=== PATIENT | male | born 1980 | race Caucasian/White ===

== ENCOUNTER 2016-04-30 19:53 | Emergency (ER) | payer BC ==
[~2016-04-30] VITALS: Ht 185.4 cm; Wt 98.9 kg
[2016-04-30 19:55] VITALS: BP 131/82; PULSE 72; RESP 18; TEMP 98; O2SAT 99
--- NOTE | 2016-04-30 19:55 | NUR ---
Patient to ER bed [facility] for evaluation. Side rails up. Report given to PENNIE LEBRON.
--- NOTE | 2016-04-30 20:00 | NUR ---
Patient AAO x4, sitting in bed, c/o LAC to left great toe. Patient states he was brewing beer at home and dropped a glass jar on his left foot and sustained a 1 inch LAC. Denies N/V/D, Denies shortness of breath, no acute distress noted. Will continue to monitor.
--- NOTE | 2016-04-30 20:53 | NUR ---
Patient back from x-ray and moved to bed 3
[2016-04-30] MEDS ORDERED: LIDOCAINE 1%, 20 ML MDV 20 ML ONE (21:54)
--- NOTE | 2016-04-30 21:55 | NUR ---
Dr. Vargas at bedside doing laceration repair.
[2016-04-30 22:31] VITALS: BP 131/82; PULSE 72; RESP 18; TEMP 98; O2SAT 99
--- NOTE | 2016-04-30 22:31 | NUR ---
Patient given written and verbal discharge instructions and verbalizes understanding. ER MD Vargas discussed with patient the results and treatment provided. Patient in stable condition. ID arm band removed. Patient educated on pain management and to follow up with PMD. Pain Scale 0/10. Opportunity for questions provided and answered.
== END 2016-04-30 22:31 | disposition home or self-care (01) ==
LOC: SED 19:53
DX: S91.112A Laceration without foreign body of left great toe without damage to nail, initial encounter (principal); W25.XXXA Contact with sharp glass, initial encounter; Y93.89 Activity, other specified; Y92.89 Other specified places as the place of occurrence of the external cause; Y99.8 Other external cause status; Z86.79 Personal history of other diseases of the circulatory system
CPT/HCPCS: 12001; 73620; 99284; J2001